=== PATIENT | female | born 1985 | race Caucasian/White ===

== ENCOUNTER 2021-03-15 03:43 | Emergency (ER) | payer OTHER, SELFPAY ==
[~2021-03-15] VITALS: Ht 180.3 cm; Wt 92.8 kg
[2021-03-15] MEDS ORDERED: BACT400T PO (03:54)
[2021-03-15] MEDS ORDERED: MACR100C43 PO ×2 (07:10→07:14)
[2021-03-15 07:15] VITALS: BP 131/74
== END 2021-03-15 07:56 | disposition home or self-care (01) ==
LOC: M ED 03:43
DX: N30.00 Acute cystitis without hematuria (principal)

== ENCOUNTER 2022-06-08 20:36 | Outpatient (CLI) | payer OTHER ==
[~2022-06-08] VITALS: Ht 180.3 cm; Wt 98.2 kg
[~2022-06-08 20:36] MED LIST: BACT400T PO; MACR100C43 PO
[2022-06-08 20:59] VITALS: BP 128/67
== END 2022-06-08 21:55 | disposition home or self-care (01) ==
LOC: M LDO 20:36
PROVIDERS: ATTEND Obstetrics & Gynecology
DX: O26.893 Other specified pregnancy related conditions, third trimester (principal); N89.8 Other specified noninflammatory disorders of vagina; Z3A.37 37 weeks gestation of pregnancy
CPT/HCPCS: 59025; G0463

== ENCOUNTER 2022-06-23 10:26 | Outpatient (CLI) | payer OTHER ==
[~2022-06-23] VITALS: Ht 180.3 cm; Wt 99.9 kg
[2022-06-23 10:59] VITALS: BP 126/60
[2022-06-23] MEDS ORDERED: HOME MED LIST COMPLETE! XX SCH (11:00)
[2022-06-23] MEDS ORDERED: TUMS500C PO (11:00)
== END 2022-06-23 12:42 | disposition home or self-care (01) ==
LOC: M LDO 10:26
PROVIDERS: ATTEND Advanced Practice Midwife
DX: O32.1XX0 Maternal care for breech presentation, not applicable or unspecified (principal); Z3A.39 39 weeks gestation of pregnancy
CPT/HCPCS: 59025; G0463

== ENCOUNTER 2022-06-25 01:14 | Inpatient (IN) | payer OTHER ==
[~2022-06-25] VITALS: Ht 180.3 cm; Wt 100.5 kg
[2022-06-25] VITALS (11 sets, daily range): BP systolic 109–126; BP diastolic 55–78
[~2022-06-25 01:14] MED LIST changes: +TUMS500C PO
[2022-06-25] MEDS ORDERED: OXYTOCIN INJ 10UNITS/ML 1ML VIAL IM PRN (04:00)
[2022-06-25] MEDS ORDERED: ceFAZolin SOD 2 GM in IV 1 EA IV ONE (04:00)
[2022-06-25] MEDS ORDERED: CARBOPROST TROMETHAMINE 250 MCG/ML AMP IM PRN (04:00)
[2022-06-25] MEDS ORDERED: OXYTOCIN DRIP 30 UNITS in IV 1 EA IV PRN ×6 (04:00)
[2022-06-25] MEDS ORDERED: TRANEXAMIC ACID INJection 1,000 MG in NS 100 ML IV PRN (04:00)
[2022-06-25] MEDS ORDERED: OXYTOCIN INJ 10UNITS/ML 1ML VIAL IV PRN (04:00)
[2022-06-25] MEDS ORDERED: LIDOCAINE 1% MDV 20ML VIAL INFIL PRN (04:00)
[2022-06-25] MEDS ORDERED: BICITRA 30ML SOLN UDC PO ONE ×2 (04:00→05:05)
[2022-06-25] MEDS ORDERED: METHYLERGONOVINE MALEATE 0.2MG/ML 1ML VIAL IM PRN (04:00)
[2022-06-25 04:33] LABS: HEMATOCRIT 33.4 % (36.0-47.0); HEMOGLOBIN 11.3 g/dl (12.0-15.5); MEAN CORPUSCULAR HEMOGLOBIN 31.3 pg (27.0-33.0); MEAN CORPUSCULAR HGB CONC 33.8 g/dl (32.0-36.5); MEAN CORPUSCULAR VOLUME 92.5 fl (80.0-96.0); PLATELET COUNT, AUTOMATED 249 10^3/uL (150-450); RED BLOOD COUNT 3.61 10^6/uL (4.00-5.40); WHITE BLOOD COUNT 9.5 10^3/uL (4.0-10.0)
[2022-06-25] MEDS ORDERED: SODIUM CHLORIDE 0.9% 1000ML IV STA (05:03)
[2022-06-25] MEDS ORDERED: PHENYLephrine 500MCG 5ML (100MCG/ML) SYRINGE As Ordered ONE (05:41)
[2022-06-25] MEDS ORDERED: ePHEDrine SULFATE 25 MG/5 ML(5MG/ML) SYRINGE As Ordered ONE (05:41)
[2022-06-25] MEDS ORDERED: MORPHINE PRES-FREE INJ 10 MG/10 ML VIAL As Ordered ONE (05:41)
[2022-06-25] MEDS ORDERED: OXYTOCIN 30UNITS IN 0.9% NaCl 500ML IV BAG As Ordered ONE ×2 (05:42→07:25)
[2022-06-25] MEDS ORDERED: KETOROLAC 60MG 2ML VIAL As Ordered ONE (06:12)
[2022-06-25] MEDS ORDERED: ONDANSETRON 4MG 2ML VIAL As Ordered ONE (06:12)
[2022-06-25] MEDS ORDERED: ACETAMINOPHEN 1000MG 100ML IV BAG As Ordered ONE (06:13)
[2022-06-25] MEDS ORDERED: oxyCODONE 5MG TAB PO PRN ×4 (07:00→07:25)
[2022-06-25] MEDS ORDERED: ONDANSETRON 4MG 2ML VIAL IV PRN ×2 (07:00→07:25)
[2022-06-25] MEDS ORDERED: diphenhydrAMINE 50MG/ML VIAL IV PRN ×2 (07:00→07:25)
[2022-06-25] MEDS ORDERED: METOCLOPRAMIDE INJ 10MG/2ML VIAL IV PRN ×2 (07:00→07:25)
[2022-06-25] MEDS ORDERED: fentaNYL 100 MCG/2 ML INJECTION IV PRN ×2 (07:00→07:25)
[2022-06-25] MEDS ORDERED: LR 1,000 ML IV SCH ×2 (07:00→07:25)
[2022-06-25] MEDS ORDERED: NALOXONE INJ 0.4MG/1ML VIAL IV PRN ×4 (07:00→07:25)
[2022-06-25] MEDS: SLF 3 ML SYR IV SCH ×6 (07:00→23:10)
[2022-06-25] MEDS ORDERED: **NOTE PATIENT COMMENT** MISC XX SCH ×2 (07:00→07:25)
[2022-06-25] MEDS ORDERED: MOM 30ML SUSPENSION UDC PO PRN (07:10)
[2022-06-25] MEDS ORDERED: RHOGAM 300MCG (1500IU) INJ IM SCH (07:10)
[2022-06-25] MEDS ORDERED: SIMETHICONE 80MG CHEW TAB PO PRN (07:10)
[2022-06-25] MEDS: PRENATAL VITAMINS CHEWABLE TABLET PO SCH (11:25)
[2022-06-25] MEDS: DOCUSATE SODIUM 100MG CAPSULE PO SCH ×2 (11:25→21:09)
[2022-06-25] MEDS: KETOROLAC 30 MG/ML 1ML VIAL IV SCH ×2 (13:51→18:28)
[2022-06-25] MEDS ORDERED: INFLUENZA QUADRIVALENT PF VACCINE 0.5ML SYRINGE IM.IMMUN ONE (15:00)
[2022-06-26] MEDS: KETOROLAC 30 MG/ML 1ML VIAL IV SCH (01:17)
[2022-06-26 02:00] VITALS: BP 110/55
[2022-06-26 06:08] VITALS: BP 96/51
[2022-06-26 06:19] LABS: HEMATOCRIT 26.3 % (36.0-47.0); HEMOGLOBIN 8.9 g/dl (12.0-15.5); MEAN CORPUSCULAR HEMOGLOBIN 31.9 pg (27.0-33.0); MEAN CORPUSCULAR HGB CONC 33.8 g/dl (32.0-36.5); MEAN CORPUSCULAR VOLUME 94.3 fl (80.0-96.0); PLATELET COUNT, AUTOMATED 173 10^3/uL (150-450); RED BLOOD COUNT 2.79 10^6/uL (4.00-5.40); WHITE BLOOD COUNT 10.9 10^3/uL (4.0-10.0)
[2022-06-26] MEDS: PRENATAL VITAMINS CHEWABLE TABLET PO SCH (09:00)
[2022-06-26] MEDS: DOCUSATE SODIUM 100MG CAPSULE PO SCH ×2 (09:21→20:36)
[2022-06-26] MEDS: IBUPROFEN 800 MG TAB PO SCH ×2 (09:21→17:50)
[2022-06-26 10:00] VITALS: BP 120/75
[2022-06-26] MEDS: ACETAMINOPHEN 500 MG TAB PO PRN ×2 (11:53→20:36)
[2022-06-26] MEDS ORDERED: diphenhydrAMINE 25MG CAP PO PRN (13:30)
[2022-06-26 18:00] VITALS: BP 123/72
[2022-06-27] MEDS: IBUPROFEN 800 MG TAB PO SCH ×2 (00:32→09:35)
[2022-06-27] MEDS: ACETAMINOPHEN 500 MG TAB PO PRN (02:51)
[2022-06-27 06:00] VITALS: BP 118/98
[2022-06-27] MEDS: PRENATAL VITAMINS CHEWABLE TABLET PO SCH (09:00)
[2022-06-27] MEDS ORDERED: MEASLES,MUMPS,RUBELLA VACCINE INJ (MMR-II) SC.IMMUN ONE (09:00)
[2022-06-27] MEDS ORDERED: INFLUENZA QUADRIVALENT PF VACCINE 0.5ML SYRINGE IM.IMMUN ONE (09:00)
[2022-06-27] MEDS: DOCUSATE SODIUM 100MG CAPSULE PO SCH (09:00)
== END 2022-06-27 11:40 | disposition home or self-care (01) | DRG 773 ==
LOC: M LDO 01:14 → M LDI 03:33 → M OBS 08:30
PROVIDERS: ADMIT Obstetrics & Gynecology; ATTEND Obstetrics & Gynecology
PROC: 10D00Z1 Extraction of Products of Conception, Low, Open Approach (ICD-10-PCS; principal; 2022-06-25 06:25)
DX: O32.2XX0 Maternal care for transverse and oblique lie, not applicable or unspecified (principal); Z3A.40 40 weeks gestation of pregnancy; O46.8X3 Other antepartum hemorrhage, third trimester; Z37.0 Single live birth

== ENCOUNTER 2025-01-29 09:26 | Emergency (ER) | payer OTHER ==
[~2025-01-29] VITALS: Ht 180.3 cm; Wt 90.9 kg
[2025-01-29] MEDS ORDERED: ETON68IM SC (09:42)
[2025-01-29] MEDS ORDERED: IBUP600T42 PO (11:17)
[2025-01-29] MEDS: ACETAMINOPHEN 500 MG TAB PO ONE (12:10)
[2025-01-29] MEDS ORDERED: METH-1164 PO (13:27)
[2025-01-29] MEDS ORDERED: KETO-204 PO (13:27)
[2025-01-29 13:39] VITALS: BP 105/55; TEMP 97.2; O2SAT 99
== END 2025-01-29 13:42 | disposition home or self-care (01) ==
LOC: M ED 09:26 → EDBD 09:26 → M ED 13:42
DX: M54.50 Low back pain, unspecified (principal); Z79.1 Long term (current) use of non-steroidal anti-inflammatories (NSAID); Z79.899 Other long term (current) drug therapy; Z79.2 Long term (current) use of antibiotics